=== PATIENT | female | born 1975 | race African-American/Black ===

== ENCOUNTER 2024-02-12 16:40 | Emergency (ER) | payer OTHER ==
[2024-02-12 17:10] VITALS: BP 135/70; PULSE 90; RESP 16; TEMP 98.9; BMI 25.1
[2024-02-12] MEDS: IBUPROFEN 400 MG TABLET (FP) PO ONE (17:25)
== END 2024-02-12 17:28 | disposition home or self-care (01) ==
LOC: FER 16:40
DX: M54.2 Cervicalgia (principal); V49.50XA Passenger injured in collision with unspecified motor vehicles in traffic accident, initial encounter
CPT/HCPCS: 99283-25